=== PATIENT | female | born 1955 | race Caucasian/White ===

== ENCOUNTER 2023-10-03 09:20 | Emergency (ER) | payer MEDICARE ==
[2023-10-03] MEDS ORDERED: Boostrix 0.5 ML (Tdap) VIAL (>/=7 yrs of age) ONE (09:45)
== END 2023-10-03 09:58 | disposition home or self-care (01) ==
LOC: MADERS 09:20
DX: S60.511A Abrasion of right hand, initial encounter (principal); Z23 Encounter for immunization; X58.XXXA Exposure to other specified factors, initial encounter
CPT/HCPCS: 90471; 90715

== ENCOUNTER 2024-12-26 08:14 | Outpatient (CLI) | payer MEDICARE ==
[2024-12-26 08:50] LABS: #Basophils 0.1 thou/uL (0.0-0.2); #Eosinophils 0.1 thou/uL (0.0-0.7); #Lymphocytes 2.1 thou/uL (1.20-3.40); #Monocytes 0.5 thou/uL (0.11-0.59); #Neutrophils 2.7 thou/uL (1.40-6.50); %Basophils 1.8 % (0.0-1.0); %Eosinophils 1.6 % (0.0-10.0); %Lymphocytes 38.1 % (21.0-51.0); %Monocytes 9.1 % (0.0-10.0); %Neutrophils 49.4 % (42.0-75.0); Hematocrit 40.7 % (36.0-47.0); Hemoglobin 13.5 g/dL (12.0-16.0); Mean Corpuscular Hemoglobin 31.0 pg (27.0-31.0); Mean Corpuscular Volume 93.5 fl (78.0-98.0); Platelet Count 249 10x3/uL (130-400); Red Blood Cell (RBC) Count 4.35 mill/uL (4.20-5.40); White Blood Cell (WBC) Count 5.5 10x3/uL (4.8-10.8)
[2024-12-26 09:03] LABS: Anion Gap 14 mmol/L (10-20); BUN (Urea Nitrogen) 13 mg/dL (9.8-20.1); Calc. Creatinine Clearance 0 mL/min (70-130); Calcium 8.8 mg/dL (7.8-10.44); Carbon Dioxide 24 mmol/L (23-31); Chloride 103 mmol/L (98-107); Glucose 69 mg/dL (80-115); Potassium 4.3 mmol/L (3.5-5.1); Sodium 137 mmol/L (136-145)
== END 2024-12-26 08:15 | disposition home or self-care (01) ==
LOC: MADLAB 08:14
PROVIDERS: ATTEND Internal Medicine
DX: I73.9 Peripheral vascular disease, unspecified (principal)
CPT/HCPCS: 36415; 80048; 85025

== ENCOUNTER 2025-01-28 09:07 | Outpatient (CLI) | payer MEDICARE ==
[2025-01-28 09:32] LABS: #Basophils 0.1 thou/uL (0.0-0.2); #Eosinophils 0.1 thou/uL (0.0-0.7); #Lymphocytes 1.4 thou/uL (1.20-3.40); #Monocytes 0.5 thou/uL (0.11-0.59); #Neutrophils 2.4 thou/uL (1.40-6.50); %Basophils 2.4 % (0.0-1.0); %Eosinophils 3.3 % (0.0-10.0); %Lymphocytes 30.9 % (21.0-51.0); %Monocytes 10.3 % (0.0-10.0); %Neutrophils 53.2 % (42.0-75.0); Hematocrit 39.0 % (36.0-47.0); Hemoglobin 12.7 g/dL (12.0-16.0); Mean Corpuscular Hemoglobin 30.4 pg (27.0-31.0); Mean Corpuscular Volume 93.4 fl (78.0-98.0); Platelet Count 260 10x3/uL (130-400); Red Blood Cell (RBC) Count 4.17 mill/uL (4.20-5.40); White Blood Cell (WBC) Count 4.5 10x3/uL (4.8-10.8)
[2025-01-28 09:43] LABS: Anion Gap 14 mmol/L (10-20); BUN (Urea Nitrogen) 12 mg/dL (9.8-20.1); Calc. Creatinine Clearance 0 mL/min (70-130); Calcium 8.7 mg/dL (7.8-10.44); Carbon Dioxide 25 mmol/L (23-31); Chloride 101 mmol/L (98-107); Glucose 83 mg/dL (80-115); Potassium 4.4 mmol/L (3.5-5.1); Sodium 136 mmol/L (136-145)
== END 2025-01-28 09:08 | disposition home or self-care (01) ==
LOC: MADLAB 09:07
PROVIDERS: ATTEND Internal Medicine
DX: I10 Essential (primary) hypertension (principal)
CPT/HCPCS: 36415; 80048; 85025

== ENCOUNTER 2025-02-11 15:50 | Emergency (ER) | payer MEDICARE ==
[~2025-02-11 15:50] MED LIST: Iopamidol 370 76% 100 ML VIAL ONE
[2025-02-11 16:15] LABS: #Basophils 0.2 thou/uL (0.0-0.2); #Eosinophils 0.2 thou/uL (0.0-0.7); #Lymphocytes 3.0 thou/uL (1.20-3.40); #Monocytes 0.7 thou/uL (0.11-0.59); #Neutrophils 2.5 thou/uL (1.40-6.50); %Basophils 2.4 % (0.0-1.0); %Eosinophils 3.5 % (0.0-10.0); %Lymphocytes 45.3 % (21.0-51.0); %Monocytes 10.7 % (0.0-10.0); %Neutrophils 38.1 % (42.0-75.0); Hematocrit 29.3 % (36.0-47.0); Hemoglobin 9.9 g/dL (12.0-16.0); Mean Corpuscular Hemoglobin 31.1 pg (27.0-31.0); Mean Corpuscular Volume 92.1 fl (78.0-98.0); Platelet Count 289 10x3/uL (130-400); Red Blood Cell (RBC) Count 3.18 mill/uL (4.20-5.40); White Blood Cell (WBC) Count 6.6 10x3/uL (4.8-10.8)
[2025-02-11 16:28] LABS: ALT (SGPT) 15 U/L (Less than 34); AST (SGOT) 25 U/L (11-34); Albumin 4.0 g/dL (3.1-4.5); Alkaline Phosphatase 51 U/L (40-110); Anion Gap 20 mmol/L (10-20); BUN (Urea Nitrogen) 9 mg/dL (9.8-20.1); Bilirubin, Total 0.9 mg/dL (0.3-1.2); Calc. Creatinine Clearance 0 mL/min (70-130); Calcium 8.8 mg/dL (7.8-10.44); Carbon Dioxide 18 mmol/L (23-31); Chloride 93 mmol/L (98-107); Globulin 3.4 g/dL (2.4-3.5); Glucose 102 mg/dL (80-115); Magnesium 1.7 mg/dL (1.6-2.6); Potassium 3.3 mmol/L (3.5-5.1); Sodium 128 mmol/L (136-145)
[2025-02-11 16:29] LABS: Troponin I Less than 0.010 ng/mL (< 0.028)
[2025-02-11] MEDS ORDERED: Acetaminophen 500 MG TAB ONE (16:33)
[2025-02-11 16:54] LABS: Glucose, Urine (Dipstick) Negative (Negative); Leukocyte Moderate (Negative); Protein, Urine (Dipstick) Negative (Neg-Trace); Specific Gravity, Urine 1.015 (1.005-1.030)
[2025-02-11 17:02] LABS: Bacteria/HPF 2+ HPF (None Seen); CAUTI Indications for Culture Alt mental st,lethar; RBC/HPF 0-3 HPF (0-3)
[2025-02-11 17:04] LABS: Urine Culture Reflex Yes Yes
== END 2025-02-11 17:45 | disposition home or self-care (01) ==
LOC: MADERS 15:50
DX: N39.0 Urinary tract infection, site not specified (principal); D64.9 Anemia, unspecified; E86.0 Dehydration; I10 Essential (primary) hypertension
CPT/HCPCS: 71275; 80053; 81001; 83605; 83735; 84484; 85025; 85379; 87086; 93005; 94760; 96360; J7030; Q9967

== ENCOUNTER 2025-02-26 07:51 | Outpatient (CLI) | payer MEDICARE ==
[2025-02-26 08:29] LABS: #Basophils 0.1 thou/uL (0.0-0.2); #Eosinophils 0.1 thou/uL (0.0-0.7); #Lymphocytes 1.1 thou/uL (1.20-3.40); #Monocytes 0.4 thou/uL (0.11-0.59); #Neutrophils 2.2 thou/uL (1.40-6.50); %Basophils 2.0 % (0.0-1.0); %Eosinophils 2.8 % (0.0-10.0); %Lymphocytes 29.4 % (21.0-51.0); %Monocytes 9.0 % (0.0-10.0); %Neutrophils 56.9 % (42.0-75.0); Hematocrit 38.1 % (36.0-47.0); Hemoglobin 11.9 g/dL (12.0-16.0); Mean Corpuscular Hemoglobin 30.6 pg (27.0-31.0); Mean Corpuscular Volume 98.2 fl (78.0-98.0); Platelet Count 309 10x3/uL (130-400); Red Blood Cell (RBC) Count 3.88 mill/uL (4.20-5.40); White Blood Cell (WBC) Count 3.9 10x3/uL (4.8-10.8)
[2025-02-26 08:38] LABS: Anion Gap 14 mmol/L (10-20); BUN (Urea Nitrogen) 12 mg/dL (9.8-20.1); Calc. Creatinine Clearance 0 mL/min (70-130); Calcium 8.9 mg/dL (7.8-10.44); Carbon Dioxide 25 mmol/L (23-31); Chloride 101 mmol/L (98-107); Glucose 81 mg/dL (80-115); Potassium 4.0 mmol/L (3.5-5.1); Sodium 136 mmol/L (136-145)
== END 2025-02-26 07:52 | disposition home or self-care (01) ==
LOC: MADLAB 07:51
PROVIDERS: ATTEND Internal Medicine
DX: I51.89 Other ill-defined heart diseases (principal)
CPT/HCPCS: 36415; 80048; 85025